=== PATIENT | male | born 1955 | race Caucasian/White ===

== ENCOUNTER 2016-06-07 05:37 | Emergency (ER) | payer OTHER ==
[~2016-06-07] VITALS: Ht 175.3 cm; Wt 143.1 kg
[~2016-06-07 05:37] MED LIST: AMLO5TAB2 PO; HYDR-4078 PO; HYDR-4246 PO; LOSA1TAB23 PO; MULT-399 PO
[2016-06-07 05:41] VITALS: Ht 175.3 cm; Wt 143.1 kg
--- OUTSIDE RECORDS SUMMARY | 2016-06-07 05:41 | XMS REPORT | Continuity of Care Document ---
Author Author [facility] Organization [facility] Address Unknown Phone Unavailable Support Name Relationship Address Phone NAN FINNEY MD Caregiver [address] [facility] [address] [place] [address] Unavailable KLAUS FERRO MD Caregiver [address] [place] [address] Unavailable ALICIA KEY Next Of Kin [address] [facility] [place] [address] Insurance Providers Guarantor Nan Key Address [address] [place] [address] * Email [email or web address] Payer [facility] Preferred Policy Number [id number] Subscriber's Name Alicia Key Relationship 01 Spouse Group Number [id number] Payer Workers Compensation Subscriber's Name Nan Key Relationship 18 Self Advance Directives Directive Response Recorded Date/Time Advanced Directives Type None 04/02/16 11:18am Chief Complaint and Reason for Visit Chief Complaint Lower Extremity Injury Reason for Visit Knee contusion Problems Active Problems Medical Problem Onset Date Status Otitis externa of both ears Unknown Acute Past Problems Medical Problem Onset Date Knee contusion Unknown Medications Current Home Medications Medication Dose Units Route Directions Days Qty Instructions Start Date Amlodipine Besylate 5 Mg Tablet 5 Mg Oral Daily 04/02/16 Hydrocodone/Acetaminophen ([place] 5-325 Tablet) 5-325 Tablet 1 Tab Oral Every 6 Hours as needed for Pain 15 Tablet 04/02/16 Hydrocodone/Acetaminophen ([place] 10-325 Tablet) 10-325 Tablet 1 Tab Oral Every 6 Hours as needed for Pain 04/02/16 Losartan/Hydrochlorothiazide (Hyzaar 100-25 Tablet) 1 Tab Tablet 1 Tab Oral Daily 07/13/11 Multivitamin (Daily Vitamin Formula) 1 Each Tablet 1 Tab Oral Daily 09/20/14 Past Home Medications Medication Directions Ordered Status Cholesterol Med , Q Day 05/01/13 Discontinued Fenofibrate (Lipofen) 150 Mg Capsule, 150 Mg Oral Daily 01/12/13 Discontinued Ibuprofen 200 Mg Capsule, 200 Mg Oral As Needed 07/13/11 Discontinued Omeprazole/Sodium Bicarbonate (Zegerid 40 Mg Capsule) 1 Cap Capsule, 1 Cap Oral One To Two Times A Day 04/30/13 Discontinued Social History Social History Problem Response Recorded Date/Time Onset Date Status Chewing Tobacco Status No 05/01/2013 6:43am Not Applicable Not Applicable Hx Substance Use Y MARIJUANA FOR PAIN 04/02/2016 11:18am Not Applicable Not Applicable Hx Alcohol Use Y OCCASIONALLY 04/02/2016 11:18am Not Applicable Not Applicable Has the pt used tobacco in the last 12 months No 05/01/2013 6:43am Not Applicable Not Applicable Tobacco Usage none 09/20/2014 7:01pm Not Applicable Not Applicable Query Response Start Date Stop Date Smoking Status Former smoker Hospital Discharge Instructions No hospital discharge instructions. Plan of Care Discharge Date 04/02/16 1:11pm Disposition 01 DISCHARGED HOME, SELF-CARE Condition at Discharge Stable Instructions/Education Provided Contusion in Adults (ED) Forms Provided Return to Work/School Permit Prescriptions See Medication Section Referrals NAN FINNEY MD Address: [address] [place] [address] [address] [place], [place] [id number] Additional Instructions/Education Ice and elevate the knee. Rest the knee over the next few days as well. May use the [place] as needed for pain. If you are having trouble with pain at all then I do want you to follow up with the Orthopedists on Tuesday to get a release to return to work. Wear the tiny wrap to help with the swelling. Care Plan and Goals Physician Care Plan Problem:Knee Contusion Goal: Follow up with primary care provider Instructions: Take medications and follow care plan as discussed/written Functional Status No functional status results. Allergies, Adverse Reactions, Alerts Allergen Type Severity Reaction Status Last Updated Oxycodone Allergy Unknown Active 04/02/16 Diflunisal Allergy Unknown N/V, DIZZY Active 04/02/16 Immunizations Query Response on File Recorded Date/Time Hx Influenza Vaccination Y NOV 2013 09/20/14 6:22pm Hx Pneumococcal Vaccination No 09/20/14 6:22pm Hx Influenza Vaccination Y NOV 2013 09/20/14 6:22pm Influenza Vaccine Hx 02/201604/02/16 11:18am Tdap Vaccine Hx UNKNOWN 04/02/16 1:16pm Vital Signs Acute Vital Signs Vital Response Date/Time Temperature (Fahrenheit) 98.3 deg F (96.8 - 99.1) 04/02/2016 11:18am Temperature (Calculated Celsius) 36.61445 degrees C (36.0 - 37.3) 04/02/2016 11:18am Pulse Rate (adult) 83 bpm (60 - 100) 04/02/2016 1:05pm Respiratory Rate 16 breaths/min (10 - 20) 04/02/2016 1:05pm O2 Sat by Pulse Oximetry 97 % (90 - 100) 04/02/2016 1:05pm Blood Pressure 131/79 mm Hg 04/02/2016 1:05pm Height (Feet) 5 feet 04/02/2016 11:18am Height (Inches) 9.00 inches 04/02/2016 11:18am Weight (Kilograms) 138.500 kg 04/02/2016 11:18am Body Mass Index (BMI) 45.0 04/02/2016 11:18am Results Name: NAN KEY Unit #: [id number] : 1955 Sex: M Admit Date: Loc / Svc: ED Discharge Date: DIAGNOSTIC IMAGING REPORT Report #: [id number] [place], [place] Indication: ITS.REASON: fall, right knee pain PROCEDURE: KNEE RIGHT 3 VIEWS: Encounter: Initial Comparison: None Findings: There is no acute fracture, dislocation or malalignment identified. Total knee replacement appears intact. 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 Significant prepatellar soft tissue swelling. Impression: No acute osseous abnormality. . Procedures No known history of procedures. Encounters Encounter Location Arrival/Admit Date Discharge/Depart Date Attending Provider Departed Emergency Room [facility] 04/02/16 11:07am 04/02/16 1: 11pm KLAUS FERRO MD Recent Diagnosis
--- NOTE | 2016-06-07 05:59 | ERPDOC ---
Departure Disposition Decision Date: Jun 07, 2016 Disposition Decision Time: 09:30 Disposition: 01 DISCHARGED HOME, SELF-CARE Impression Impression Impression: Primary Impression: Cholelithiasis Cholelithiasis location: gallbladder Cholecystitis presence: without cholecystitis Biliary obstruction: without biliary obstruction Qualified Codes: K80.20 - Calculus of gallbladder without cholecystitis without obstruction Severity: Moderate Condition: Improved Seen By: Physician only Referrals: NAN FINNEY MD (Family) Follow-up for reevaluation and possible further treatment Patient Instructions: Gallstones (ED) Problems/Meds/Labs Reviewed?: Yes Medications reviewed and manag: Yes Follow up care ordered?: Yes Mental Status: Alert, Oriented Scripts Hydrocodone/Acetaminophen (Lortab 10-325 mg Tablet) 1 Each Tablet 1-2 TAB PO Q6H Y for PAIN, #15 TAB Prov: ZACKERY RUIZ MD 06/07/16 HPI - Abdominal Pain General Chief Complaint: Abdominal Pain Stated Complaint: ABD PAIN Time Seen by Provider: 05:59 Source: patient, family History/Exam Limitations: no limitations HPI - Abdominal Pain Initial Comments Patient is a 61-year-old male, presents humor through for evaluation of right- sided abdominal pain. Patient woke up from sleeping approximately 2 AM with right-sided abdominal pain, more flank than upper or lower. Patient denies any constipation, diarrhea, urinary symptoms. Patient's had no fevers no chills was able to eat dinner normally last night. Patient states he had a normal bowel movement yesterday. Patient states the pain quickly ramped up to 8/10, with diaphoresis no nausea. Patient decided to present to the ER for currently complaining of 9/10 pain Occurred At: home Onset: Rapid Duration: 4-6 hrs Pain Scale: Now & Worst: 8/10 Location: RUQ, right flank Radiation: no radiation Allergies: Coded Allergies: diflunisal (Verified Allergy, Unknown, N/V, DIZZY, 06/07/16) PER H&P oxycodone (Verified Allergy, Unknown, 06/07/16) Past History Patient Surgical History bilateral knee replacements bilateral hip replacements left shoulder ligament surgery Past Medical History Metabolic: hypercholesterolemia, hypertension, DENIES: hypothyroidism Respiratory: DENIES: COPD, asthma Surgical History Joint: hip, knee, shoulder Vaccines Hx Influenza Vaccination: Yes (NOV 2013) Hx Pneumococcal Vaccination: No Social History Smoking Status: Current every day smoker Alcohol Intake: none Review of Systems Constitutional Constitutional: appetite decrease, DENIES: chills, dizziness, fever, weakness ENMT Sinuses: DENIES: congestion, rhinorrhea Mouth/Throat: DENIES: scratchy throat, sore throat Cardiovascular Cardiac: DENIES: chest pain, dyspnea on exertion Pulmonary Respiratory: DENIES: cough, dyspnea, sputum, tachypnea GI Upper Abdomen: nausea, pain Lower Abdomen: pain, DENIES: constipation, diarrhea General: DENIES: burning, frequency, pain, urgency Musculoskeletal General: DENIES: cramps, pain, weakness Integumentary Skin: DENIES: color change, itching, rash Endocrine Endocrine: DENIES: heat/cold intolerance Hematologic/Lymphatic Hematologic/Lymphatic: DENIES: anemia Physical Exam General General Nourishment: well nourished, well developed, obese General Body Habitus: well groomed Vitals and Pain First Documented Vital Signs Date Time Temp Pulse Resp B/P Pulse Ox O2 Delivery O2 Flow Rate FiO2 06/07/16 05:41 98.3 67 22 171/88 100 Room Air Weight: Kilograms: 143.100 Height (feet): 5 Height (inches): 9.00 Triage Pain Scale: RN VS reviewed by Provider: Yes Eyes (brief) Eyes Brief: found: EOMI, PERRL ENMT (brief) ENMT Brief: FOUND: TM clear, TM good light reflex, ear canals clear, mucosa moist, normal dentition, NOT FOUND: nasal erythema, nasal exudate, nasal swelling, pharnyx erythema, tonsillar deviation Neck (brief) Neck: NOT FOUND: adenopathy, spasm, tenderness Respiratory (brief) Respiratory: FOUND: clear all dominique, equal bilaterally, NOT FOUND: rales, wheezes Cardiovascular (brief) Cardiac: FOUND: regular rate, regular rhythm Capillary Refill: <2 sec Abdomen Palpation: FOUND: Husain's sign, rebound, soft, tender (right upper quadrant tenderness with some element of rebound), NOT FOUND: McBurney's point tender, Obturator sign, Psoas sign, Rosving's sign, hepatomegaly, involuntary guarding, splenomegaly, voluntary guarding Auscultation: FOUND: normoactive Lymphatic (brief) Lymphatic Brief: NOT FOUND: adenopathy Musculoskeletal (brief) Musculoskeletal Brief: NOT FOUND: spasm, tenderness Integumentary (brief) Integumentary Brief: FOUND: dry, pink, warm, NOT FOUND: rash Neurologic (brief) Neurological Brief: FOUND: CN w/o gross def to obs, motor-no gross deficits, sensory-no gross deficits Psychiatric (brief) Psychiatric Brief: FOUND: alert, oriented Differential Diagnoses Considering: Acute ND, Appendicitis, Aortic Dissection, Biliary Colic, Bowel Obstruction, Cholecystitis, Constipation, Diverticulitis, Gastroenteritis, Pancreatitis, Pyelonephritis, Ulcer, Ulcerative Colitis, UTI, Volvulus Progress Results/Orders Orders Procedure Category Date Status Time Iv Lock (Ed Only) EDM 06/07/16 Transmitted 06:02 Nothing By Mouth (Ed EDM 06/07/16 Transmitted Only) 06:02 Cbc W/Auto LAB 06/07/16 Complete Diff-Reflex Manual 06:02 Cmp - Comprehensive LAB 06/07/16 Complete Metabolic 06:02 Lipase LAB 06/07/16 Complete 06:02 Ua, Dip Wreflex LAB 06/07/16 Complete Microsc & Tricot Knitter 06:02 Troponin I W LAB 06/07/16 Complete Hemolysis Index Normal Saline (Normal PHA 06/07/16 Complete Saline Iv) 06:15 Hydromorphone PHA 06/07/16 Complete (Dilaudid) 06:15 Ondansetron Inj PHA 06/07/16 Complete (Zofran) 06:15 Ct Abd/Pelvis CT 06/07/16 Resulted W/Contrast Only 07:09 Iohexol (Omnipaque) PHA 06/07/16 Complete 07:40 Normal Saline (Ns) PHA 06/07/16 Complete 07:40 Saline Flush (Iv PHA 06/07/16 Complete Flush) 07:40 Ketorolac (Toradol) PHA 06/07/16 Complete 08:30 Lab Results Laboratory Tests Test 06/07/16 06:15 06/07/16 07:10 White Blood Count 10.0T/MM3 Red Blood Count 5.27M/MM3 Hemoglobin 15.7GM/DL Hematocrit 47.2% Mean Corpuscular Volume 89.6UM3 Mean Corpuscular Hemoglobin 29.8UUG Mean Corpuscular Hemoglobin Concent 33.3GM/DL RDW Standard Deviation 48.7FL Platelet Count 200T/MM3 Mean Platelet Volume 10.9UM3 Immature Granulocyte % (Auto) 0.6% Neutrophils (%) (Auto) 63.7% Lymphocytes (%) (Auto) 24.6% Monocytes (%) (Auto) 8.3% Eosinophils (%) (Auto) 2.5% Basophils (%) (Auto) 0.3% Absolute Immature Granulocyte (auto 0.06T/MM3 Absolute Neutrophils (auto) 6.4T/MM3 Absolute Lymphocytes (auto) 2.5T/MM3 Absolute Monocytes (auto) 0.8T/MM3 Absolute Eosinophils (auto) 0.3T/MM3 Absolute Basophils (auto) 0.0T/MM3 Turbidity < 20 Sodium Level 143MEQ/L Potassium Level 3.9MEQ/L Chloride Level 105MEQ/L Carbon Dioxide Level 23MEQ/L Anion Gap 15MEQ/L Blood Urea Nitrogen 17.0MG/DL Creatinine 0.7MG/DL Glomerular Filtration Rate Calc 115 BUN/Creatinine Ratio 24RATIO Glucose Level 130MG/DL Calculated Osmolality 279MOSM/KG Calcium Level 10.6MG/DL Total Bilirubin 0.80MG/DL Icterus Index < 2 Aspartate Amino Transf (AST/SGOT) 27U/L Alanine Aminotransferase (ALT/SGPT) 43U/L Alkaline Phosphatase 98U/L Troponin I < 0.012ng/ml Total Protein 7.7G/DL Albumin 4.2G/DL Globulin 3.5G/DL Albumin/Globulin Ratio 1.2RATIO Lipase 91U/L Chemistry Specimen Hemolysis < 15 Urine Collection Type Voided-not cc-midstr Urine Color Yellow Urine Turbidity Clear Urine pH 7.0 Urine Specific [place] 1.020 Urine Protein Negative Urine Glucose (UA) Negative Urine Ketones Negative Urine Blood Trace-intact Urine Nitrite Negative Urine Bilirubin Negative Urine Urobilinogen 0.2EU/DL Urine Leukocyte Esterase Negative Urinalysis Comment Microscopic not ind. Medications Current ED Medications Sodium Chloride (Normal Saline IV) 1,000 ml @ 999 mls/hr Q1H1M ONCE IV Last administered on 06/07/16 06:28; Start 06/07/16 at 06:15; Stop 06/07/16 at 07:15 ; Status DC Hydromorphone HCl (Dilaudid) 0.5 mg O ONCE IV Last administered on 06/07/16 06:32; Start 06/07/16 at 06:15; Stop 06/07/16 at 06:16; Status DC Ondansetron HCl (Zofran) 4 mg O ONCE IV Last administered on 06/07/16t 06:29; Start 06/07/16 at 06:15; Stop 06/07/16 at 06:16; Status DC Iohexol 1 bottle 1 bottle STK-MED ONCE .ROUTE ; Start 06/07/16 at 07:40; Stop at 07:41; Status DC Sodium Chloride (NS) 100 ml @ As Directed STK-MED ONCE .ROUTE ; Start 06/07/16 at 07:40; Stop 06/07/16 at 07:41; Status DC Sodium Chloride (Iv Flush) 10 ml STK-MED ONCE .ROUTE ; Start 06/07/16 at 07:40; Stop 06/07/16 at 07:41; Status DC Ketorolac Tromethamine (Toradol) 30 mg O ONCE IV Last administered on t 08:38; Start 06/07/16 at 08:30; Stop 06/07/16 at 08:31; Status DC Progress Progress Patient has cholelithiasis, however no signs of acute cholecystitis. Patient just pain is better controlled, discussed briefly with Dr. Marte headache, surgery, he would recommend referral to primary medical physician for evaluation for continued symptoms and formal right upper quadrant ultrasound if needed. Discuss case with Dr. Ahn communications tower climber for Dr. Finney, they will see patient in the office CT CT : CT: Abd/Pelvis IV contrast Interpretation: Abnormal, Faxed Report (cholelithiasis without cholecystitis ) ZACKERY RUIZ MD Jun 07, 2016 05:59 ZACKERY RUIZ MD Jun 07, 2016 05:59
--- NOTE | 2016-06-07 06:05 | NUR ---
REPORT REPORT RECEIVED AND CARE ASSUMED AT THIS TIME
--- NOTE | 2016-06-07 06:05 | NUR ---
REPORT GIVEN TO AMIRA VELA AT THIS TIME, CARE IS TRANSFERRED.
[2016-06-07] MEDS ORDERED: ONDANSETRON 4mg/2ml INJECTION IV ONE (06:15)
[2016-06-07] MEDS ORDERED: NORMAL SALINE 1,000 ML IV ONE (06:15)
[2016-06-07] MEDS ORDERED: HYDROMORPHONE 2mg/ml INJECTION IV ONE (06:15)
[2016-06-07 06:33] LABS: BASOPHILS % (AUTO) 0.3 % (0-2); EOSINOPHILS # (AUTO) 0.3 T/MM3 (0-0.5); EOSINOPHILS % (AUTO) 2.5 % (0-4); HCT - HEMATOCRIT 47.2 % (41-53); HGB - HEMOGLOBIN 15.7 GM/DL (13.5-17.5); IMMATURE GRANULOCYTE # (AUTO) 0.06 T/MM3 (0.00-0.03); IMMATURE GRANULOCYTE % (AUTO) 0.6 % (0.0-0.5); LYMPHOCYTES # (AUTO) 2.5 T/MM3 (1-4.8); LYMPHOCYTES % (AUTO) 24.6 % (23-45); MEAN CORPUSCULAR HGB 29.8 UUG (26-34); MEAN CORPUSCULAR HGB CONC(MCHC 33.3 GM/DL (31-37); MEAN CORPUSCULAR VOLUME 89.6 UM3 (80-100); MEAN PLATELET VOLUME 10.9 UM3 (9.4-12.4); MONOCYTES # (AUTO) 0.8 T/MM3 (0-0.8); MONOCYTES % (AUTO) 8.3 % (0-9.0); NEUTROPHILS #(AUTO)-ABSOLUTE 6.4 T/MM3 (1.8-7.7); NEUTROPHILS % (AUTO) 63.7 % (33-66); RED BLOOD COUNT 5.27 M/MM3 (4.50-5.90)
[2016-06-07 06:43] LABS: ALBUMIN 4.2 G/DL (3.5-5.0); ALBUMIN/GLOBULIN RATIO 1.2 RATIO (1.1-2.2); ALKALINE PHOSPHATASE 98 U/L (38-126); ALT (SGPT) 43 U/L (21-72); ANION GAP 15 MEQ/L (5-15); AST (SGOT) 27 U/L (17-59); BUN/CREATININE RATIO 24 RATIO (6-26); CALCIUM 10.6 MG/DL (8.4-10.2); CHLORIDE 105 MEQ/L (98-107); CO2 - CARBON DIOXIDE 23 MEQ/L (22-30); CREATININE 0.7 MG/DL (0.8-1.5); GLOMERULAR FILTRATION RATE 115; GLUCOSE 130 MG/DL (75-110); LIPASE 91 U/L (23-300); POTASSIUM 3.9 MEQ/L (3.6-5); SODIUM 143 MEQ/L (134-144); TOTAL PROTEIN 7.7 G/DL (6.3-8.2)
--- NOTE | 2016-06-07 06:57 | NUR ---
STATUS PT REPORTS PAIN 5/10 AND IS FEELING SOMEWHAT BETTER AFTER MEDS. PT'S SPO2 88-90% WHILE RESTING. PT HAS HISTORY OF SLEEP APNEA AND SPO2 INCREASES TO 94% WHEN AWAKE AND TALKING. ENCOURAGED PT TO TAKE DEEP BREATHS
--- NOTE | 2016-06-07 07:10 | NUR ---
ELIMINATION PT VOIDED 475CC CLEAR YELLOW URINE. UA SENT TO LAB
[2016-06-07 07:20] LABS: BLOOD, URINE TRACE-INTACT (NEGATIVE); COLOR,URINE YELLOW (YELLOW); LEUKOCYTE ESTERASE ,URINE NEGATIVE (NEGATIVE); NITRITE,URINE NEGATIVE (NEGATIVE); UROBILINOGEN,URINE 0.2 EU/DL (NORMAL)
[2016-06-07] MEDS ORDERED: IOHEXOL 300 MG/ML 100ml INJECTION ONE (07:40)
[2016-06-07] MEDS ORDERED: SALINE FLUSH 10ml SYRINGE ONE (07:40)
[2016-06-07] MEDS ORDERED: NORMAL SALINE 100 ML ONE (07:40)
--- NOTE | 2016-06-07 07:45 | NUR ---
RADIOLOGY PT TO RADIOLOGY PER CART
--- NOTE | 2016-06-07 07:57 | NUR ---
RADIOLOGY PT FROM RADIOLOGY PER CART
--- NOTE | 2016-06-07 08:17 | DI ---
EXAM: CT abdomen and pelvis with contrast. LOCATION OF DICTATION: [place] HISTORY: ITS.REASON: right periumbilical abdominal pain ?stone ?appy COMPARISON: No prior studies are available for comparison TECHNIQUE: CT images were obtained of the abdomen and pelvis utilizing 100 mL of Omnipaque 240. Coronal and sagittal reformations were utilized. Automated Exposure Control and Iterative Reconstruction dose reducing techniques were utilized. FINDINGS: CT ABDOMEN LUNG BASES: There is mild bilateral dependent atelectasis. LIVER: There is suspected fatty infiltration of the liver. The liver is normal in size. SPLEEN: Unremarkable. GALLBLADDER: Several tiny stones layering dependently within the gallbladder which is otherwise unremarkable. PANCREAS: Unremarkable. ADRENAL GLANDS: Unremarkable. KIDNEYS: There are simple cyst demonstrated within the bilateral kidneys. The cyst involving the lower pole posteriorly of the left kidney measures 5.6 cm maximum diameter. The cyst involving the midportion of the right kidney posteriorly measures 2.5 cm. AORTA: Mild calcific atherosclerotic disease of the abdominal aorta LYMPH NODES: Unremarkable. STOMACH BOWEL LOOPS: The appendix is normal. There is mild fecal retention. No evidence for bowel obstruction or free air. PERITONEAL CAVITY: There is a small fat-containing periumbilical hernia. Small fat-containing left inguinal hernia is noted. CT PELVIS URINARY BLADDER: Unremarkable. PROSTATE: Unremarkable. OSSEOUS STRUCTURES: There is moderate spondylosis of the thoracolumbar spine. There is multilevel central canal and neuroforaminal stenosis extending from the L2-3 level through the L5-S1 levels. There are bilateral total hip replacements demonstrated. IMPRESSION: 1. No inflammatory mass, lymphadenopathy, or ascites. The appendix is normal. 2. Small fat-containing periumbilical hernia. Small fat-containing left inguinal hernia. 3. Cholelithiasis without evidence for cholecystitis. 4. Suspected fatty infiltration of the liver. 5. Significant spondylosis of the thoracolumbar spine. .
--- NOTE | 2016-06-07 08:19 | NUR ---
COMFORT PT REPORTS PAIN IS STARING TO COME BACK. DR RUIZ NOTIFIED
[2016-06-07] MEDS ORDERED: KETOROLAC 30mg/ml INJECTION IV ONE (08:30)
--- NOTE | 2016-06-07 09:30 | NUR ---
STATUS PT REPORTS HIS PAIN IS GETTING BETTER
[2016-06-07] MEDS ORDERED: HYDR-4011 PO (09:32)
--- NOTE | 2016-06-07 09:55 | NUR ---
IV IV DC'D WITH CATH INTACT
[2016-06-07 09:59] VITALS: BP 139/78; PULSE 82; RESP 20; TEMP 98.3; O2SAT 99
--- NOTE | 2016-06-07 09:59 | NUR ---
DISMISSAL DISMISSAL INSTRUCTIONS WITH RX FOR NORCO 10MG PO. NO FURTHER QUESTIONS AT THIS TIME. PT LEFT DEPARTMENT AMBUALTORY WITH
== END 2016-06-07 09:59 | disposition home or self-care (01) ==
LOC: ED 05:37
DX: K80.20 Calculus of gallbladder without cholecystitis without obstruction (principal)
CPT/HCPCS: 74177; 80053; 81003; 83690; 84484; 85025; 96361; 96374; 96375; 99284; J1170; J1885; J2405; J7030; J7050; Q9967

== ENCOUNTER → 2016-06-08 | Outpatient (CLI) | payer OTHER ==
[~2016-06-08] MED LIST changes: +HYDR-4011 PO
--- NOTE | 2016-06-08 15:18 | DI ---
Indication: ITS.REASON: R10.11 RUQ PAIN PROCEDURE: US GALLBLADDER: Encounter: Initial Comparison: The abdomen and pelvis from yesterday Technique: Grayscale and color Doppler sonographic imaging of the right upper quadrant of the abdomen was performed. Findings: Hepatic parenchyma is echogenic and sonographically dense without evidence for focal mass. The gallbladder shows multiple shadowing gallstones with wall thickness at the upper limits of normal at just under 3 mm. No pericholecystic fluid or sonographic Husain's sign. Both the intra and extrahepatic biliary system are of normal caliber with the common duct measuring 3 mm in dimension. Visualized portions of the head and body of the pancreas are unremarkable. The right kidney is present without collecting system dilatation. The right kidney measures 12.2 cm in length. 2.1 cm simple appearing right renal cyst inferiorly. Impression: 1. Cholelithiasis without definite evidence of acute cholecystitis. Nuclear medicine hepatobiliary scan could be helpful for further evaluation. 2. Hepatic steatosis. .
== END ==
LOC: IMA 14:35
PROVIDERS: ATTEND Family Medicine
DX: K76.0 Fatty (change of) liver, not elsewhere classified (principal); K80.20 Calculus of gallbladder without cholecystitis without obstruction; R10.11 Right upper quadrant pain

== ENCOUNTER → 2016-06-09 | Outpatient (CLI) | payer OTHER ==
[~2016-06-09] MED LIST changes: +SALINE FLUSH 10ml SYRINGE ONE; +SINCALIDE 5 MCG/VIAL IJ ONE; +SODIUM CHLORIDE (Bacteriostatic) 30ml VIAL ONE
--- NOTE | 2016-06-09 15:22 | DI ---
Indication: ITS.REASON: R10.11 RUQ PAIN PROCEDURE: NM HEPATOBIL/EF: Encounter: Initial Comparison: Gallbladder ultrasound from yesterday Technique: 6.5 mCi of Tc-99m mebrofenin was injected intravenously. At approximately 46 minutes following this administration, 2.8 mcg of Kinevac was administered intravenously. Anterior planar images were obtained and a time/activity curve was calculated. FINDINGS: Radiotracer uptake is seen homogenously within the liver. There is normal clearance of radiotracer from the blood pool. The common bile duct is visualized at approximately 12 minutes. The gallbladder is visualized by 14 minutes, and radiotracer is excreted into the small bowel. There is no evidence of radiotracer outside the biliary or gastrointestinal tract. The gallbladder ejection fraction is normal at 81%. IMPRESSION: 1. Gallbladder visualization excluding acute cholecystitis. 2. Normal gallbladder ejection fraction of 81%, excluding biliary dyskinesia. .
== END ==
LOC: IMA 13:28
PROVIDERS: ATTEND Family Medicine
DX: R10.11 Right upper quadrant pain (principal)
CPT/HCPCS: 78227; A9537; J2805

== ENCOUNTER 2016-06-29 05:45 | Day surgery (SDC) | payer OTHER ==
[2016-06-29] VITALS (34 sets, daily range): BP systolic 106–145; BP diastolic 54–93; PULSE 70–92; RESP 8–22; TEMP 97.4–98.4; O2SAT 90–100; Ht 175.3 cm; Wt 137.9 kg
[~2016-06-29] VITALS: Ht 175.3 cm; Wt 137.9 kg
[~2016-06-29 05:45] MED LIST changes: -HYDR-4011 PO; -HYDR-4246 PO; +IBUP-1546 PO; +OMEP-122 PO; -SALINE FLUSH 10ml SYRINGE ONE; -SINCALIDE 5 MCG/VIAL IJ ONE; -SODIUM CHLORIDE (Bacteriostatic) 30ml VIAL ONE
--- OUTSIDE RECORDS SUMMARY | 2016-06-29 05:51 | XMS REPORT | Continuity of Care Document ---
Author Author [facility] Organization [facility] Address Unknown Phone Unavailable Support Name Relationship Address Phone NAN FINNEY MD Caregiver [address] [place] [address] Unavailable ZACKERY RUIZ MD Caregiver [address] [place] [address] Unavailable ALICIA KEY Next Of Kin [address] [facility] [place] [id number] Insurance Providers Guarantor Nan Key Address [address] [facility] [place] [address] * Email [email or web address] Payer [facility] Preferred Policy Number [id number] Subscriber's Name Alicia Key Relationship 01 Spouse Group Number [id number] Advance Directives Directive Response Recorded Date/Time Advanced Directives Type None 06/07/16 5:41am Chief Complaint and Reason for Visit Chief Complaint Abdominal Pain Reason for Visit Cholelithiasis Problems Active Problems Medical Problem Onset Date Status Otitis externa of both ears Unknown Acute Past Problems Medical Problem Onset Date Cholelithiasis Unknown Knee contusion Unknown Medications Current Home Medications Medication Dose Units Route Directions Days Qty Instructions Start Date Amlodipine Besylate 5 Mg Tablet 5 Mg Oral Daily 04/02/16 Hydrocodone/Acetaminophen (Lortab 10-325 Mg Tablet) 1 Each Tablet 1-2 Tab Oral Every 6 Hours as needed for Pain 15 Tablet 06/07/16 Hydrocodone/Acetaminophen ([place] 5-325 Tablet) 5-325 Tablet 1 Tab Oral Every 6 Hours as needed for Pain 15 Tablet 04/02/16 Hydrocodone/Acetaminophen ([place] 10-325 Tablet) 10-325 Tablet 1 Tab Oral [...] Hx Substance Use Y MARIJUANA FOR PAIN USED 06/06/16 06/07/2016 6:34am Not Applicable Not Applicable Hx Alcohol Use Y OCCASIONALLY 06/07/2016 6:34am Not Applicable Not Applicable Has the pt used tobacco in the last 12 months No 05/01/2013 6:43am Not Applicable Not Applicable Tobacco Usage none 09/20/2014 7:01pm Not Applicable Not Applicable Query Response Start Date Stop Date Smoking Status Former smoker Hospital Discharge Instructions No hospital discharge instructions. Plan of Care Discharge Date 06/07/16 9:59am Disposition 01 DISCHARGED HOME, SELF-CARE Condition at Discharge Improved Instructions/Education Provided Gallstones (ED) Prescriptions See Medication Section Referrals NAN FINNEY MD Address: [address] [place] [address] [address] [place] [phone] Note: Follow-up for reevaluation and possible further treatment Care Plan and Goals Physician Care Plan Problem: Cholelithiasis Goal: Follow up with primary care provider Instructions: Take medications and follow care plan as discussed/written Functional Status No functional status results. Allergies, Adverse Reactions, Alerts Allergen Type Severity Reaction Status Last Updated Oxycodone Allergy Unknown Active 06/07/16 Diflunisal Allergy Unknown N/V, DIZZY Active 06/07/16 Immunizations Query Response on File Recorded Date/Time Hx Influenza Vaccination Y NOV 2013 09/20/14 6:22pm Hx Pneumococcal Vaccination No 09/20/14 6:22pm Hx Influenza Vaccination Y NOV 2013 09/20/14 6:22pm Influenza Vaccine Hx 02/201606/07/16 6:34am Tdap Vaccine Hx UNKNOWN 04/02/16 1:16pm Vital Signs Acute Vital Signs Vital Response Date/Time Temperature (Fahrenheit) 98.3 deg F (96.8 - 99.1) 06/07/2016 9:59am Temperature (Calculated Celsius) 36.70268 degrees C (36.0 - 37.3) 06/07/2016 9:59am Pulse Rate (adult) 82 bpm (60 - 100) 06/07/2016 9:59am Respiratory Rate 20 breaths/min (10 - 20) 06/07/2016 9:59am O2 Sat by Pulse Oximetry 99 % (90 - 100) 06/07/2016 9:59am Blood Pressure 139/78 mm Hg 06/07/2016 9:59am Height (Feet) 5 feet 06/07/2016 5:41am Height (Inches) 9.00 inches 06/07/2016 5:41am Weight (Kilograms) 143.100 kg 06/07/2016 5:41am Body Mass Index (BMI) 46.0 06/07/2016 5:41am Results Laboratory Results Test Name Result Units Flags Reference Collection Date/Time Result Date/ Time Comments C-Reactive Protein 12.4 MG/L H 0-9 04/21/2016 10:08am 04/21/2016 10: 24am White Blood Count 10.0 T/MM3 4.5-11.0 06/07/2016 6:06/07/2016 6: 33am Red Blood Count 5.27 M/MM3 4.50-5.90 06/07/2016 6:06/07/2016 6: 33am Hemoglobin 15.7 GM/DL 13.5-17.5 06/07/2016 6:06/07/2016 6:33am Hematocrit 47.2 % 41-53 06/07/2016 6:06/07/2016 6:33am Mean Corpuscular Volume 89.6 UM3 80-100 06/07/2016 6:06/07/2016 6: 33am Mean Corpuscular Hemoglobin 29.8 UUG 26-34 06/07/2016 6:2016 6:33am Mean Corpuscular Hemoglobin Concent 33.3 GM/DL 31-37 06/07/2016 6:06/07/2016 6:33am RDW Standard Deviation 48.7 FL 36.9-50.2 06/07/2016 6:06/07/2016 6 :33am Platelet Count 200 T/MM3 130-400 06/07/2016 6:06/07/2016 6:33am Mean Platelet Volume 10.9 UM3 9.4-12.4 06/07/2016 6:06/07/2016 6: 33am Neutrophils (%) (Auto) 63.7 % 33-66 06/07/2016 6:06/07/2016 6: 33am Lymphocytes (%) (Auto) 24.6 % 23-45 06/07/2016 6:06/07/2016 6: 33am Monocytes (%) (Auto) 8.3 % 0-9.0 06/07/2016 6:06/07/2016 6:33am Eosinophils (%) (Auto) 2.5 % 0-4 06/07/2016 6:06/07/2016 6:33am Basophils (%) (Auto) 0.3 % 0-2 06/07/2016 6:06/07/2016 6:33am Immature Granulocyte % (Auto) 0.6 % H 0.0-0.5 06/07/2016 6:2016 6:33am Absolute Neutrophils (auto) 6.4 T/MM3 1.8-7.7 06/07/2016 6:2016 6:33am Absolute Lymphocytes (auto) 2.5 T/MM3 1-4.8 06/07/2016 6:2016 6:33am Absolute Monocytes (auto) 0.8 T/MM3 0-0.8 06/07/2016 6:06/07/2016 6:33am Absolute Eosinophils (auto) 0.3 T/MM3 0-0.5 06/07/2016 6:2016 6:33am Absolute Basophils (auto) 0.0 T/MM3 0-0.2 06/07/2016 6:06/07/2016 6:33am Absolute Immature Granulocyte (auto 0.06 T/MM3 H 0.00-0.03 06/07/2016 6: 06/07/2016 6:33am Icterus Index < 2 0-7 06/07/2016 6:06/07/2016 6:43am Chemistry Specimen Hemolysis < 15 0-25 06/07/2016 6:06/07/2016 7 :04am 0-25: Specimen Exhibited No Hemolysis. Turbidity < 20 0-20 06/07/2016 6:06/07/2016 6:43am Sodium Level 143 MEQ/L 134-144 06/07/2016 6:06/07/2016 6:43am Potassium Level 3.9 MEQ/L 3.6-5 06/07/2016 6:06/07/2016 6:43am Chloride Level 105 MEQ/L 98-107 06/07/2016 6:06/07/2016 6:43am Carbon Dioxide Level 23 MEQ/L 22-30 06/07/2016 6:06/07/2016 6: 43am Anion Gap 15 MEQ/L 5-06/07/2016 6:06/07/2016 6:43am Blood Urea Nitrogen 17.0 MG/DL -06/07/2016 6:06/07/2016 6: 43am Creatinine 0.7 MG/DL L 0.8-1.5 06/07/2016 6:06/07/2016 6:43am BUN/Creatinine Ratio 24 RATIO 6-06/07/2016 6:06/07/2016 6:43am Glomerular Filtration Rate Calc 115 06/07/2016 6:06/07/2016 6: 43am Glucose Level 130 MG/DL H 75-110 06/07/2016 6:06/07/2016 6:43am Calculated Osmolality 279 MOSM/KG 261-280 06/07/2016 6:06/07/2016 6:43am Calcium Level 10.6 MG/DL H 8.4-10.2 06/07/2016 6:06/07/2016 6:43am Total Bilirubin 0.80 MG/DL 0.20-1.30 06/07/2016 6:06/07/2016 6: 43am Alkaline Phosphatase 98 U/L 38-126 06/07/2016 6:06/07/2016 6:43am Total Protein 7.7 G/DL 6.3-8.2 06/07/2016 6:06/07/2016 6:43am Albumin 4.2 G/DL 3.5-5.0 06/07/2016 6:06/07/2016 6:43am Globulin 3.5 G/DL 2.4-3.6 06/07/2016 6:06/07/2016 6:43am Albumin/Globulin Ratio 1.2 RATIO 1.1-2.2 06/07/2016 6:06/07/2016 6 :43am Aspartate Amino Transf (AST/SGOT) 27 U/L 17-59 06/07/2016 6:152016 6:43am Alanine Aminotransferase (ALT/SGPT) 43 U/L 21-72 06/07/2016 6: 6:43am Troponin I < 0.012 ng/ml 0-0.12 06/07/2016 6:06/07/2016 7:04am Troponin values with a difference of 55% increase from orginal troponin value represent a true biological DELTA value. (%increase Calc=Orginal Troponin value, divided by subsequent Troponin value, multiplied by 100) Lipase 91 U/L 23-300 06/07/2016 6:06/07/2016 6:43am Urine Collection Type VOIDED-NOT CC-MIDSTR 06/07/2016 7:10a2016 7:20am Urine Color YELLOW YELLOW 06/07/2016 7:06/07/2016 7:20am Urine Turbidity CLEAR CLEAR 06/07/2016 7:06/07/2016 7:20am Urine Specific [place] 1.020 1.015-1.025 06/07/2016 7:2016 7:20am Urine pH 7.0 5.0-8.0 06/07/2016 7:10a06/07/2016 7:20am Urine Leukocyte Esterase NEGATIVE NEGATIVE 06/07/2016 7:2016 7:20am Urine Nitrite NEGATIVE NEGATIVE 06/07/2016 7:06/07/2016 7:20am Urine Protein NEGATIVE NEGATIVE 06/07/2016 7:10a06/07/2016 7:20am Urine Glucose (UA) NEGATIVE NEGATIVE 06/07/2016 7:10a06/07/2016 7: 20am Urine Ketones NEGATIVE NEGATIVE 06/07/2016 7:10a06/07/2016 7:20am Urine Urobilinogen 0.2 EU/DL NORMAL 06/07/2016 7:10a06/07/2016 7: 20am Urine Bilirubin NEGATIVE NEGATIVE 06/07/2016 7:10am 06/07/2016 7: 20am Urine Blood TRACE-INTACT A NEGATIVE 06/07/2016 7:10am 06/07/2016 7: 20am Urinalysis Comment MICROSCOPIC NOT IND. 06/07/2016 7:10am 2016 7:20am Name: NAN KEY Unit #: [id number] : 1955 Sex: M Admit Date: Loc / Svc: ED Discharge Date: DIAGNOSTIC IMAGING REPORT Report #: [id number] [facility] [place] EXAM: CT abdomen and pelvis with contrast. LOCATION OF DICTATION: [place] HISTORY: ITS.REASON: right periumbilical abdominal pain ?stone ?appy COMPARISON: No prior studies are available for comparison TECHNIQUE: CT images were obtained of the abdomen and pelvis utilizing 100 mL of Omnipaque 240. Coronal and sagittal reformations were utilized. Automated Exposure Control and Iterative Reconstruction dose reducing techniques were utilized. FINDINGS: CT ABDOMEN LUNG BASES: There is mild bilateral dependent atelectasis. LIVER: There is suspected fatty infiltration of the liver. The liver is normal in size. SPLEEN: Unremarkable. GALLBLADDER: Several tiny stones layering dependently within the gallbladder which is otherwise unremarkable. PANCREAS: Unremarkable. ADRENAL GLANDS: Unremarkable. KIDNEYS: There are simple cyst demonstrated within the bilateral kidneys. The cyst involving the lower pole posteriorly of the left kidney measures 5.6 cm maximum diameter. The cyst involving the midportion of the right kidney posteriorly measures 2.5 cm. AORTA: Mild calcific atherosclerotic disease of the abdominal aorta LYMPH NODES: Unremarkable. STOMACH BOWEL LOOPS: The appendix is normal. There is mild fecal retention. No evidence for bowel obstruction or free air. PERITONEAL CAVITY: There is a small fat-containing periumbilical hernia. Small fat-containing left inguinal hernia is noted. CT PELVIS URINARY BLADDER: Unremarkable. PROSTATE: Unremarkable. OSSEOUS STRUCTURES: There is moderate spondylosis of the thoracolumbar spine. There is multilevel central canal and neuroforaminal stenosis extending from the L2-3 level through the L5-S1 levels. There are bilateral total hip replacements demonstrated. IMPRESSION: 1. No inflammatory mass, lymphadenopathy, or ascites. The appendix is normal. 2. Small fat-containing periumbilical hernia. Small fat-containing left inguinal hernia. 3. Cholelithiasis without evidence for cholecystitis. 4. Suspected fatty infiltration of the liver. 5. Significant spondylosis of the thoracolumbar spine. . Procedures Procedure Status Date Provider(s) X-ray exam of knee 3 Completed 04/02/16 Emergency dept visit Completed 04/02/16 Routine venipuncture Completed 04/21/16 Complete cbc w/auto diff wbc Completed 04/21/16 C-reactive protein Completed 04/21/16 Encounters Encounter Location Arrival/Admit Date Discharge/Depart Date Attending Provider Departed Emergency Room [facility] 06/07/16 5:37am 06/07/16 9: 59am ZACKERY RUIZ MD Registered Clinic [facility] 04/21/16 10:00am KLAUS JOHNSON MD Departed Emergency Room [facility] 04/02/16 11:07am 04/02/16 1: 11pm KLAUS FERRO MD Recent Diagnosis
[2016-06-29 06:28] LABS: ANION GAP 14 MEQ/L (5-15); BUN/CREATININE RATIO 22 RATIO (6-26); CHLORIDE 105 MEQ/L (98-107); CO2 - CARBON DIOXIDE 27 MEQ/L (22-30); CREATININE 0.9 MG/DL (0.8-1.5); GLOMERULAR FILTRATION RATE 86; GLUCOSE 105 MG/DL (75-110); POTASSIUM 3.9 MEQ/L (3.6-5); SODIUM 146 MEQ/L (134-144)
[2016-06-29] MEDS ORDERED: LR 1,000 ML IV SCH ×2 (07:00→10:38)
[2016-06-29] MEDS ORDERED: LIDOCAINE 1% (10mg/ml) 2ml SDV INJ ONE (07:00)
[2016-06-29] MEDS ORDERED: BUPIVACAINE 0.25% (2.5mg/ml) INJ 30ml SDV ONE (07:02)
--- NOTE | 2016-06-29 07:04 | ANESPREOP ---
Anesthesia Record Date and Time DATE: 06/29/16 TIME: 07:02 Pre-Op Diagnosis Biliary colic Proposed Surgical Procedure MULTIPORT ROBOTIC LAP EDUARDO NPO since: Midnight Allergies: Coded Allergies: diflunisal (Verified Allergy, Unknown, N/V, DIZZY, 06/29/16) PER H&P oxycodone (Verified Allergy, Unknown, 06/29/16) Ht/Wt/BMI Height: 5 ' 9.00 " Weight: 137.900 kg BMI: 44.9 kg/m2 Vital Signs Date Time Temp Pulse Resp B/P Pulse Ox O2 Delivery O2 Flow Rate FiO2 06/29/16 06:02 98.4 78 15 125/74 95 Room Air Medications Inpatient Medications Current Medications Medications (Trade) Dose Ordered Sig/Ariana Start Time Stop Time Status Last Admin Dose Admin Lactated Ringer's (Lactated Ringers) 1,000 ml @ 50 mls/hr Q20H 06/29/16 07:00 06/29/16 06:43 50 MLS/HR Amlodipine Besylate (Amlodipine Besylate) 5 Mg Tablet, 5 MG PO DAILY, (Reported) Last Taken: on 06/29/16429 Hydrocodone/Acetaminophen ([place] 10-325 Tablet) 10-325 Tablet, 1 TAB PO Q6H PRN for PAIN, (Reported) Last Taken: on 06/28/161999 Ibuprofen (Ibuprofen) 400 Mg Tablet, 2 TAB PO Q4H PRN for PAIN, (Reported) Last Taken: on 06/27/16 Losartan/Hydrochlorothiazide (Hyzaar 100-25 Tablet) 1 Tab Tablet, 1 TAB PO DAILY, (Reported) Last Taken: on 06/28/16499 Multivitamin (Daily Vitamin Formula) 1 Each Tablet, 1 TAB PO DAILY, (Reported) Last Taken: on 06/28/16499 Omeprazole (Omeprazole) 20 Mg Tablet.dr, 20 MG PO ACB, (Reported) Take 1 tablet, by mouth, one time a day with breakfast. Last Taken: on 06/29/16429 Currently on Beta Roby: No Medical/Surgical History Anesthesia PMH: Reports: *Hypertension, Arthritis (HIPS, KNEES ALL REPLACED), Hiatal Hernia, Pneumonia (HX), Reflux, Sleep Apnea (CPAP), Denies: *Angina, * Diabetes, *Dyspnea, *OR, Anesthesia Reactions (NO AIRWAY ISSUES), Asthma, Blood Transfusion Reac, CHF, COPD, CVA/Stroke/TIA, Cancer, Clotting Problems, Deep Vein Thrombosis, Glaucoma, Headaches, Hepatitis, Malignant Hyperthermia, Renal Disease, Rheumatic Fever, Seizures, Thyroid Disease, Tuberculosis Smoking Status: Former smoker Has pt. smoked today?: No Use Chewing Tobacco?: No Second Hand Exposure: No Substance Use Type: does not use Alcohol Intake: none Past Surgical History Orthopedic Surgeries: Yes - B TKR ,B ANNETTA ,LT FOOT EXC BENIGN LUMP,LT RCR & TORN BICEPS MUSCLE Abdominal Surgeries: No Genitourinary Surgeries: No Cardiac Surgeries: No Endocrine Surgeries: No Reproductive Surgeries: Yes - VASECTOMY Neurological Surgeries: No Ear Surgeries: No Nose Surgeries: No Throat Surgeries: No Other Surgeries: Yes - RIGHT HAND SEVERED & REPAIRED,C SCOPE Anesthesia Adverse Reactions: FOUND none Family Hx of Anesthesia Advers: none Pertinent Findings Laboratory Tests 06/29/16 06:11 EKG Rhythm: Sinus Rhythm Physical Exam Respiratory: Lungs clear Cardiovascular: FOUND Regular rate, rhythm Airway Assessment Mallampati Score: II TMD: 3 Fingerbreadths Neck Extension: Good Overall Assessment: May Be Diff Mask Vent., May Be Diff Intubation ASA: 3 Plan Anesthesia Plan: GETA Discussion Discussed risks/options/alternatives of anesthesia and questions answered. Patient consents. Nursing pain assessment noted. Present: Spouse Attestation Statement Prior to the delivery of any anesthetic medication, I examined the patient, developed the plan, obtained the patient's consent and discussed the risk and benefits of the procedure with the patient/guardian. KENDAL DEY CRNA June 29, 2016 07:04
[2016-06-29] MEDS ORDERED: SALINE FLUSH 10ml SYRINGE ONE (07:09)
[2016-06-29] MEDS ORDERED: ROCURONIUM 50mg/5ml INJECTION IV ONE (07:11)
[2016-06-29] MEDS ORDERED: PROPOFOL 200mg 20 ML IV ONE (07:11)
[2016-06-29] MEDS ORDERED: LIDOCAINE 2% (20mg/ml) 5ml PF SDV ONE (07:11)
[2016-06-29] MEDS ORDERED: CEFAZOLIN 1 GRAM INJECTION IV ONE (07:30)
[2016-06-29] MEDS ORDERED: FENTANYL 250mcg/5ml INJECTION ONE (07:51)
[2016-06-29] MEDS ORDERED: DEXAMETHASONE 4mg/ml - 1ml INJECTION ONE (08:28)
[2016-06-29] MEDS ORDERED: ONDANSETRON 4mg/2ml INJECTION ONE (08:28)
[2016-06-29] MEDS ORDERED: METOCLOPRAMIDE 10mg/2ml INJECTION IV PRN (10:00)
[2016-06-29] MEDS ORDERED: ONDANSETRON 4mg/2ml INJECTION IV PRN ×2 (10:00→10:45)
--- NOTE | 2016-06-29 10:38 | GSPOSTPROC ---
Immediate Operative Note DATE: 06/29/16 TIME: 10:35 Postop Diagnosis: chronic cholecystitis Surgical Procedure: Other (Robotic laparoscopic cholecystectomy) Surgeon: Georgiana ASA: 3 ASHLEE HUNT MD June 29, 2016 10:38
[2016-06-29] MEDS ORDERED: MORPHINE SULFATE 10 MG SYRINGE IV PRN (10:45)
[2016-06-29] MEDS ORDERED: ACETAMINOPHEN 500 MG TABLET PO PRN (10:45)
[2016-06-29] MEDS ORDERED: HYDROMORPHONE 2 MG TABLET PO PRN (10:45)
[2016-06-29] MEDS ORDERED: PROMETHAZINE 25 MG INJECTION IV PRN (10:45)
[2016-06-29] MEDS ORDERED: IBUPROFEN 200 MG TABLET PO PRN (10:45)
[2016-06-29] MEDS: HYDROMORPHONE 2mg/ml INJECTION IV PRN ×4 (10:56→11:42)
--- NOTE | 2016-06-29 11:20 | NUR ---
STATUS PATIENT ABDOMEN APPEARS DISTENDED AND SLIGHTLY FIRM TO RIGHT SIDE. MEASUREMENTS OBTAINED AT THIS TIME OF ABDOMEN=54.5 INCHES. AMADEO GREENWOOD RN AND MARYCHUY COX RN FROM OR ALONG WITH REAL MUJICA RN IN ROOM TO ASSESS PATIENT FOR COMPARISON PREOP. WILL CONTINUE TO MONITOR PATIENT AT THIS TIME. DR. HUNT TO ASSESS PATIENT AFTER CURRENT CASE.
--- NOTE | 2016-06-29 12:00 | ANESPO ---
Post-Op Note Date 06/29/16 Time: 12:00 Status Pt Participated in Evaluation: Pt participated in person Vital Signs Date Time Temp Pulse Resp B/P Pulse Ox O2 Delivery O2 Flow Rate FiO2 06/29/16 11:50 76 8 114/58 94 Nasal Cannula 3.00 06/29/16 10:31 98.1 Respiratory Function: Airway patent Cardiovascular Function: Regular pulse Telemetry Pattern: SR Mental Status: Alert/oriented Pain Level Intensity: 7 Unable to Assess Pain Due To: Medicated/Sleeping Hydration: IV infusing Complications during Recovery None apparent Follow-Up Instructions Instructions Per Surgeon KENDAL DEY CRNA June 29, 2016 12:00
--- NOTE | 2016-06-29 12:10 | NUR ---
STATUS DR. HUNT IN PACU TO ASSESS PATIENT ABDOMEN. NO FURTHER ORDERS RECEIVED AT THIS TIME. RN GIVEN PERMISSION TO TRANSPORT PATIENT TO SURGICAL FLOOR
--- NOTE | 2016-06-29 12:12 | OPNOTEF ---
DATE OF OPERATION 06/29/2016 PREOPERATIVE DIAGNOSIS Chronic cholecystitis and cholelithiasis. POSTOPERATIVE DIAGNOSIS Chronic cholecystitis and cholelithiasis. OPERATION Multiport robotic laparoscopic cholecystectomy. SURGEON Dr. Stoner ANESTHESIA General. ASA CLASS 3 FINDINGS The gallbladder appeared to be chronically inflamed. The gallbladder did appear to contain some small gallstones. The liver appeared normal. DESCRIPTION OF OPERATION The patient did have injectable indocyanine green dye administered intravenously preoperatively. The patient was placed in supine position on the operating table. General anesthesia was satisfactorily induced. The abdomen was prepped and draped in routine sterile fashion. Bupivacaine 0.25% without epinephrine was infiltrated into the skin and underlying tissue at an infraumbilical incision site. An infraumbilical incision was made. This incision was extended down through the subcutaneous tissue to the area beneath the umbilicus under direct vision. The patient did have an umbilical hernia. There was a fascial defect located directly beneath the umbilicus. Tissue was opened at this fascial defect and the peritoneal cavity was entered. This was a Toni type of entry. The 12 mm camera port was then inserted through the infraumbilical incision into the peritoneal cavity. Pneumoperitoneum was established with carbon dioxide. The 12 mm 30-degree da Carla laparoscope was inserted at the infraumbilical port. The skin and underlying structures at the abdominal wall were infiltrated with bupivacaine at a port site at the left upper quadrant of the abdomen at the midclavicular line. An incision was made at this site and an 8 mm da Carla instrument port was placed at this incision. The skin and underlying abdominal wall structures were infiltrated with bupivacaine at another incision site at the left side of the abdomen. An incision was made at this site and an AirSeal animal care assistant port was placed at this incision. The skin and underlying abdominal wall structures were infiltrated with bupivacaine at a port site at the right upper quadrant of the abdomen. An incision was made at this area and an 8 mm da Carla instrument port was placed at this incision. The skin and underlying abdominal wall structures were infiltrated with bupivacaine at another port site at a more lateral location at the right side of the abdomen. An incision was made at this site and another 8 mm da Carla instrument port was placed at this incision. The patient was placed in reverse Trendelenburg position. The right side of the table was tilted up. The da Carla robotic system was brought up to the operating table. The da Carla robotic system was docked to the camera port and the instrument ports. The da Carla 12 mm 30-degree laparoscope was inserted at the camera port. The [place] bipolar forceps was inserted at the 8 mm instrument port at the left upper quadrant of the abdomen associated with instrument arm #1. A Cadiere forceps was inserted at the 8 mm instrument port at the right upper quadrant of the abdomen associated with instrument arm #2. A ProGrasp forceps was inserted at the 8 mm instrument port at the right lateral location at the abdomen associated with instrument arm #3. These instruments were all placed into a position adjacent to the gallbladder. The surgeon then went from the patient's side at the operating table to the surgeon console. The ProGrasp forceps with instrument arm #3 was used to grasp the fundus of the gallbladder and elevate the gallbladder and reflect the liver up superiorly towards the right diaphragm. The infundibulum of the gallbladder was grasped with a Cadiere forceps with instrument arm #2. Dissection was performed at the hepatocystic triangle. The cystic duct was dissected out and identified. The cystic artery was dissected out and identified. The cystic duct was demonstrated with Firefly fluorescence imaging at this time. Dissection was performed at the hepatocystic triangle until the only two structures remaining were the cystic duct and the cystic artery. A critical view of safety was achieved at this time. The hepatocystic triangle was cleared of all fatty and fibrous tissue until the only two structures remaining were the cystic duct and the cystic artery. Three of the Hem-o-julián clips were applied to the cystic duct at the junction of the cystic duct and the gallbladder. The cystic duct was divided between the Hem-o-julián clips with a curved dissecting scissors. Two of the Hem-o-julián clips were left in place on the cystic duct stump. Three of the Hem-o-julián clips were then applied to the cystic artery. The cystic artery was divided between the Hem-o-julián clips with monopolar curved scissors. Two of the Hem-o-julián clips were left on the end of the cystic artery which remained in the patient. The monopolar curved scissors was then used to dissect the gallbladder out of the gallbladder bed. Tissue was coagulated with the monopolar curved scissors as the gallbladder was being dissected out of the gallbladder bed to maintain hemostasis. There was one bleeding point from a blood vessel at the gallbladder bed which did need to be controlled with placement of a [id number]-[id number]-[id number] stitch using 3-0 Vicryl suture. This was a hemostatic lkaxao-cu-gyutu stitch of 3-0 Vicryl suture which did control the bleeding from this point at the gallbladder bed. The gallbladder was completely dissected out of the gallbladder bed. Irrigation was performed at the gallbladder bed. Hemostasis was satisfactory at the gallbladder bed. The gallbladder was placed in a position in the peritoneal cavity along the margin of the liver. The instruments were then removed from the instrument ports. The da Carla laparoscope was removed from the camera port. The da Carla robotic system was undocked from the ports. The surgeon left the surgeon console and returned back to the side of the patient at the operating table. The da Carla 8.5 mm 30-degree laparoscope was inserted at one of the right-sided da Carla instrument ports. The specimen retrieval pouch was inserted at the camera port. The gallbladder was placed in the specimen retrieval pouch. The specimen retrieval pouch containing the gallbladder was brought out through the infraumbilical incision. The gallbladder was submitted as a specimen for study by the pathologist. The instrument ports were all removed. Carbon dioxide was removed from peritoneal cavity by desufflation. The fascial layer of the infraumbilical incision was closed with a series of simple interrupted stitches using 0 Vicryl suture. This suture line of simple interrupted stitches using 0 Vicryl suture did close the umbilical hernia fascial defect which had been present preoperatively beneath the umbilicus. The skin at the base the umbilicus was then secured down to the underlying fascia with a couple of simple interrupted stitches using 3-0 Vicryl suture. The skin margins were then closed at all the incisions with subcuticular stitches using 4-0 Vicryl suture. Benzoin and 1/4-inch wide Steri-Strips were applied to the incisions. Band-Aids were applied to the incisions. The patient tolerated the operation well. The patient was transferred to the operating to the recovery room in satisfactory condition. KRIS
--- NOTE | 2016-06-29 12:22 | NUR ---
ADMIT PATIENT ADMITTED TO ROOM A09 AT THIS TIME. PATIENT WAS MOVED VIA SLIDE BOARD AND NURSING STAFF FROM OR CART. PATIENT IS ALERT AND ORIENTED. VITAL SIGNS ARE STABLE AND PATENT IS ON ROOM AIR. AT BEDSIDE. WILL CONTINUE TO MONITOR.
--- NOTE | 2016-06-29 16:05 | NUR ---
DISCHARGE PATIENT IS ALERT AND ORIENTED X3. PATIENT VITALS ARE STABLE AND PATIENT IS ON ROOM AIR. PATIENT DENIES CP, NAUSEA, AND SOA. PATIENT DISCHARGE INSTRUCTIONS INCLUDE: SIGNS AND SYMPTOMS OF INFECTION, REASONS TO CALL DOCTOR AND/OR SEEK IMMEDIATE CARE, WHEN TO MAKE FOLLOW UP APPOINTMENT, CONTINUED MEDICATIONS, INCISION/STERI STRIP CARE, ACTIVITY, DIET, AND DI FOR LAPAROSCOPIC CHOLECYSTECTOMY. PERSONAL BELONGINGS RETURNED AND ID BAND REMOVED. IV DISCONTINUED. PATIENT LEFT VIA WHEELCHAIR FROM FRONT ENTRANCE. PATIENT WAS TRANSPORTED HOME FOR SELF CARE BY .
[2016-06-30] MEDS ORDERED: OMEPRAZOLE 20 MG CAPSULE PO SCH (06:30)
[2016-06-30] MEDS ORDERED: AMLODIPINE 5 MG TABLET PO SCH (09:00)
[2016-06-30] MEDS ORDERED: LOSARTAN/HCTZ 100/25 TABLET PO SCH (09:00)
== END 2016-06-29 18:10 | disposition home or self-care (01) ==
LOC: SCU 05:45 → SRG 05:52 → SCU 18:10
PROVIDERS: ATTEND Surgery
DX: K80.10 Calculus of gallbladder with chronic cholecystitis without obstruction (principal); I10 Essential (primary) hypertension; K21.9 Gastro-esophageal reflux disease without esophagitis; G47.30 Sleep apnea, unspecified; E78.5 Hyperlipidemia, unspecified; E66.01 Morbid (severe) obesity due to excess calories; Z79.899 Other long term (current) drug therapy; Z99.81 Dependence on supplemental oxygen; Z88.5 Allergy status to narcotic agent; Z88.6 Allergy status to analgesic agent; Z87.891 Personal history of nicotine dependence; Z68.41 Body mass index [BMI] 40.0-44.9, adult; Z96.653 Presence of artificial knee joint, bilateral; Z96.643 Presence of artificial hip joint, bilateral
CPT/HCPCS: 36415; 47562; 80048; J0330; J0690; J1100; J1170; J2405; J2704; J3010; J7030; J7120; S2900